=== PATIENT | female | born 1995 | race Caucasian/White ===

== ENCOUNTER → 2025-02-08 16:09 | Outpatient (REF) | payer OTHER, SELFPAY | LOC: PNTC 16:09 | PROVIDERS: ATTENDING PHYSICIAN Obstetrics & Gynecology | DX: Z36.0 Encounter for antenatal screening for chromosomal anomalies (principal); Z36.82 Encounter for antenatal screening for nuchal translucency | CPT/HCPCS: 76801; 76813 ==

== ENCOUNTER → 2025-02-21 09:03 | Outpatient (REF) | payer OTHER, SELFPAY | LOC: PNTC 09:03 | PROVIDERS: ATTENDING PHYSICIAN Obstetrics & Gynecology | DX: O99.212 Obesity complicating pregnancy, second trimester (principal) | CPT/HCPCS: 76805 ==

== ENCOUNTER → 2025-03-29 13:13 | Outpatient (REF) | payer OTHER, SELFPAY | LOC: PNTC 13:13 | PROVIDERS: ATTENDING PHYSICIAN Obstetrics & Gynecology | DX: O99.212 Obesity complicating pregnancy, second trimester (principal); Z36.3 Encounter for antenatal screening for malformations; Z36.86 Encounter for antenatal screening for cervical length | CPT/HCPCS: 76811; 76817 ==